=== PATIENT | male | born 1945 | race Caucasian/White ===

== ENCOUNTER 2023-09-04 20:46 | Emergency (ER) | payer BC, OTHER ==
[~2023-09-04] VITALS: Ht 180.3 cm; Wt 109.0 kg
[2023-09-04] MEDS: HYDROcodone-ACET 5/325MG TAB PO ONE (23:27)
[2023-09-04 23:40] VITALS: BP 139/84; PULSE 70; RESP 18; TEMP 98; O2SAT 96
== END 2023-09-04 23:45 | disposition home or self-care (01) ==
LOC: ER 20:46
DX: S46.811A Strain of other muscles, fascia and tendons at shoulder and upper arm level, right arm, initial encounter (principal); S50.811A Abrasion of right forearm, initial encounter; I25.10 Atherosclerotic heart disease of native coronary artery without angina pectoris; Z98.890 Other specified postprocedural states; Z88.8 Allergy status to other drugs, medicaments and biological substances; W22.8XXA Striking against or struck by other objects, initial encounter; Y93.89 Activity, other specified; Y92.89 Other specified places as the place of occurrence of the external cause; Y99.8 Other external cause status
CPT/HCPCS: 73030